=== PATIENT | male | born 1960 | race African-American/Black ===

== ENCOUNTER 2018-02-02 12:18 | Emergency (ER) | payer MEDICAID ==
[~2018-02-02] VITALS: Ht 172.7 cm; Wt 89.8 kg
[~2018-02-02 12:18] MED LIST: NKM
[2018-02-02 12:30] VITALS: BP 147/100
[2018-02-02] MEDS ORDERED: UNOBMED (12:33)
[2018-02-02] MEDS ORDERED: Lidocaine 1% MPF 10mg/ml 5ml INJ ONE (13:00)
[2018-02-02] MEDS ORDERED: Azithromycin 250mg tab ORAL ONE (13:00)
[2018-02-02 13:39] LABS: APPEARANCE,URINE CLEAR; BILIRUBIN, URINE NEGATIVE (NEGATIVE); GLUCOSE, URINE (UA) NEGATIVE (NEGATIVE); KETONES,URINE NEGATIVE (NEGATIVE); LEUKOCYTE ESTERASE ,URINE 1+ (NEGATIVE); NITRITE,URINE NEGATIVE (NEGATIVE); PH,URINE 7 (4.5-8.0); PROTEIN,URINE 2+ (NEGATIVE); UROBILINOGEN,URINE 1 MG/DL (0.0-1.0)
[2018-02-02 13:48] LABS: COLOR,URINE YELLOW
[2018-02-02] MEDS ORDERED: BACTRIM DS TAB1 EAC1 ORAL (13:53)
[2018-02-02 14:01] VITALS: BP 134/89
--- NOTE | 2018-02-02 21:30 | Emergency Room Report ---
History of Present Illness General Chief Complaint: Male Urogenital Problems Source: Patient Present Illness HPI Patient is a 57-year-old male presenting for dysuria and yellow penile discharge for the past 2 days. He does admit to new sexual partner with unknown STD status. Pain is a 7 out of 10 burning sensation with urination. He denies other symptoms including nausea, vomiting, fever, chills, back pain, rash Allergies: Coded Allergies: AMOXICILLIN (Verified Allergy, Mild, Rash, 04/17/12) Patient History Past Medical History: see triage record Pertinent Family History: none Reviewed Nursing Documentation: PMH: Agreed; PSxH: Agreed Nursing Documentation-PM Past Medical History: No History, Except For Hx Hypertension: Yes Review of Systems All Other Systems: negative except mentioned in HPI Physical Exam Vital Signs Date Time Temp Pulse Resp B/P (MAP) Pulse Ox O2 Delivery O2 Flow Rate FiO2 02/02/18 12:30 98.4 90 14 147/100 97 Room Air Sp02 EP Interpretation: reviewed, normal General Appearance: no apparent distress, alert, GCS 15, non-toxic Head: normocephalic, atraumatic Eyes: bilateral eye normal inspection, bilateral eye PERRL Respiratory: chest non-tender, lungs clear, normal breath sounds, speaking full sentences Cardiovascular #1: regular rate, rhythm, no edema Gastrointestinal: normal bowel sounds, soft, tenderness - suprapubic Genitourinary: normal inspection, no CVA tenderness, penis normal, scrotum normal Musculoskeletal: back normal, gait/station normal, normal range of motion, non- tender Neurologic: alert, oriented x3, responsive, motor strength/tone normal, sensory intact, speech normal Psychiatric: judgement/insight normal, memory normal, mood/affect normal, no suicidal/homicidal ideation Skin: normal color, no rash, warm/dry, well hydrated Medical Decision Making PA Attestation Dr. Campa is my supervising physician. Patient management was discussed with my supervising physician Diagnostic Impression: Primary Impression: UTI (urinary tract infection) Qualified Codes: N39.0 - Urinary tract infection, site not specified; R31.9 - Hematuria, unspecified Additional Impression: Possible exposure to STD ER Course Patient is a 57-year-old male presenting for dysuria and yellow penile discharge for the past 2 days. Differential diagnosis considered but not limited to: UTI, urethritis, STD, among others Physical exam: Afebrile. No apparent distress There is tested palpation over suprapubic region only. No CVA tenderness exam unremarkable. No discharge. No rash. Urethra is pink Urinalysis shows occasional bacteria and some red blood cells Patient will be treated for gonorrhea and Chlamydia due to symptoms and unsure STD status with new partner He is Mo'ed home with Bactrim DS. ER precautions given Laboratory Tests Test 02/02/18 12:40 Urine Color Yellow Urine Appearance Clear Urine pH 7 (4.5-8.0) Urine Specific [place] 1.010 (1.005-1.035) Urine Protein 2+ (NEGATIVE) H Urine Glucose (UA) Negative (NEGATIVE) Urine Ketones Negative (NEGATIVE) Urine Blood Negative (NEGATIVE) Urine Nitrite Negative (NEGATIVE) Urine Bilirubin Negative (NEGATIVE) Urine Urobilinogen 1 MG/DL (0.0-1.0) H Urine Leukocyte Esterase 1+ (NEGATIVE) H Urine RBC 5-10 /HPF (0 - 0) H Urine WBC 0-2 /HPF (0 - 0) Urine Squamous Epithelial Cells Occasional /LPF Urine Bacteria Occasional /HPF (NONE) Lab Results Impression Urinalysis shows occasional bacteria and some red blood cells Last Vital Signs Date Time Temp Pulse Resp B/P (MAP) Pulse Ox O2 Delivery O2 Flow Rate FiO2 02/02/18 14:01 98.4 90 14 134/89 97 Room Air Status: improved Disposition: HOME, SELF-CARE Condition: Improved Scripts Trimethoprim/Sulfamethoxazole 160/800* (BACTRIM DS TABLET*) 1 Each Tablet 1 TAB ORAL TWICE A DAY, #14 TAB Prov: RYLAND FERNANDEZ 02/02/18 Referrals: MIRIAM STERN,REFERRING JASON,REFERRING (PCP) Patient Instructions: Urinary Tract Infection Additional Instructions: I discussed my findings with the patient. All questions and concerns have been answered. Treatment and medication compliance have been addressed. I advised the patient that they need to follow up with PMD in 3-5 days. Return to ED if symptoms worsen, new symptoms arise, or if needed for any reason. Patient verbalized understanding of discharge instructions. RYLAND FERNANDEZ Feb 02, 2018 21:30
== END 2018-02-02 14:02 | disposition home or self-care (01) ==
LOC: EMR 13:25
DX: N39.0 Urinary tract infection, site not specified (principal); R36.9 Urethral discharge, unspecified; Z88.0 Allergy status to penicillin; I10 Essential (primary) hypertension
CPT/HCPCS: 81003; 96372; 99283; J0696; Q0144